=== PATIENT | male | born 1960 | race Caucasian/White ===

== ENCOUNTER → 2021-07-13 13:37 | Outpatient (CLI) | payer OTHER, SELFPAY ==
--- NOTE | 2021-07-13 | DI.CT.S_ITS ---
PROCEDURE: CT ABDOMEN PELVIS W CON INDICATIONS: Left lower quadrant abdominal swelling, mass TECHNIQUE: After the administration of oral and IV contrast, axial sections were acquired from the lung bases to the pubic symphysis. Coronal and sagittal reformats were performed. For radiation dose reduction, the following was used: automated exposure control, adjustment of mA and/or kV according to patient size. COMPARISON: None. FINDINGS: Image quality: Excellent. Lung bases: Unremarkable. A small hiatal hernia is incidentally noted. Heart: No significant findings. ABDOMEN: Liver: Unremarkable. Gallbladder: Dependent gallstones can be seen within the gallbladder. The gallbladder otherwise has an unremarkable CT appearance. Biliary ducts: Unremarkable. Pancreas: Unremarkable. Spleen: Unremarkable. Adrenal Glands: Unremarkable. Kidneys and Ureters: Along the posterior aspect of the left kidney, there is a water density nonenhancing cyst seen that measures 1.5 cm. The kidneys enhance symmetrically and demonstrate normal size. There is no hydronephrosis. Stomach and Bowel: Proximal gastric wall thickening can be seen. No small bowel wall thickening can be seen. No dilated loops of small bowel are seen. Distal colonic diverticulosis is seen, without diverticulitis. A mild amount of stool can be seen within the colon. No additional: Abnormality can be seen. A normal appendix is incidentally noted. Peritoneum: No abnormal intraperitoneal fluid. No free air. Ventral Wall: No hernia. Abdominal Nodes: No retroperitoneal or mesenteric adenopathy by size criteria. Vessels: Aorta and inferior vena cava are normal in size. PELVIS: Pelvic Organs: Unremarkable. Bladder: Unremarkable. Pelvic Nodes: No enlarged lymph nodes. Miscellaneous: Bilateral fat containing inguinal hernias are seen, left larger than right. Bones: Mild levoconvex scoliotic curvature is noted. Focal L5-S1 degenerative change is seen, with moderate disc space narrowing. Bilateral pars defects are seen. Grade 1 anterolisthesis is seen at this level. Milder degenerative changes are seen elsewhere. Chronic appearing thoracolumbar junction anterior wedge deformities are seen IMPRESSION: No left lower quadrant masses are seen. No inflammatory lesions are seen. Colonic diverticulosis is seen, without findings of active diverticulitis. Proximal gastric wall thickening can be seen. Differential diagnosis includes a true mass/infiltration versus incomplete distention. If clinically appropriate, please consider an upper endoscopy for further evaluation. Incidental note is made of: Small hiatal hernia Simple appearing left renal cyst Chronic appearing thoracolumbar junction anterior wedge deformities Normal appendix Grade 1 L5-S1 anterolisthesis, with associated degenerative change Bilateral L5 pars defects Fat containing bilateral inguinal hernias, left larger than right. Dictated by: Mateo Barker M.D. on 07/13/2021 at 15:53 Approved by: Mateo Barker M.D. on 07/13/2021 at 15:57
== END ==
PROVIDERS: Referring Provider Family Medicine; Visit Provider Family Medicine
DX: R19.04 Left lower quadrant abdominal swelling, mass and lump (principal); K44.9 Diaphragmatic hernia without obstruction or gangrene; K57.90 Diverticulosis of intestine, part unspecified, without perforation or abscess without bleeding; N28.1 Cyst of kidney, acquired; M43.17 Spondylolisthesis, lumbosacral region; M47.817 Spondylosis without myelopathy or radiculopathy, lumbosacral region; K40.20 Bilateral inguinal hernia, without obstruction or gangrene, not specified as recurrent
CPT/HCPCS: 74177

== ENCOUNTER → 2022-11-02 12:05 | Outpatient (CLI) | payer OTHER, SELFPAY ==
--- NOTE | 2022-11-02 | DI.MRI.S_ITS ---
PROCEDURE: MR LUMBAR SPINE WO CON INDICATIONS: Spinal stenosis, lumbar region TECHNIQUE: Noncontrast sagittal T1 spin echo and T2 fast echo, sagittal STIR, and T2 fast spin echo through the lumbar spine. In cases with scoliosis, additional coronal T2 fast spin echo may be performed. COMPARISON: None. FINDINGS: Image quality: Excellent. Alignment and Curvature: There is grade 1 L5 on S1 anterolisthesis. There is otherwise normal bony alignment. Bone Marrow: Marrow is of normal overall signal. No acute vertebral body compression fractures. Spinal Cord: Conus medullaris terminates at the L1 level. Visualized cord demonstrates normal signal and size. Paraspinous Soft Tissues: No paravertebral masses. T12-L1: Severe disc desiccation and height loss. No canal stenosis. No foraminal stenosis. L1-L2: Severe disc desiccation and height loss. No canal stenosis. Mild bilateral foraminal stenosis. L2-L3: Severe disc desiccation and height loss. No canal stenosis. Mild bilateral neural foraminal stenosis. L3-L4: Severe disc desiccation and height loss. Broad-based disc bulge. Mild facet and ligamentum flavum hypertrophy. No canal stenosis. L4-L5: Moderate disc desiccation and height loss. Mild facet ligamentum flavum hypertrophy. No canal stenosis. Moderate bilateral foraminal stenosis. L5-S1: Severe disc desiccation and height loss. Moderate facet ligamentum flavum hypertrophy. Mild canal stenosis. Severe bilateral neural foraminal stenosis with flattening of the bilateral exiting nerve roots. IMPRESSION: 1. Severe disc desiccation, height loss, and anterolisthesis at L5-S1 with resultant mild canal stenosis and bilateral severe foraminal stenosis with flattening of the exiting nerve roots. 2. Moderate to severe multilevel disc desiccation and height loss throughout the lumbar spine. 3. Moderate foraminal stenosis bilaterally at L4-5. Dictated by: Nancy Montiel M.D. on 11/02/2022 at 15:07 Approved by: Nancy Montiel M.D. on 11/02/2022 at 15:50
== END ==
PROVIDERS: PCP Nurse Practitioner Family; Referring Provider Orthopaedic Surgery Orthopaedic Surgery of the Spine; Visit Provider Orthopaedic Surgery Orthopaedic Surgery of the Spine
DX: M48.061 Spinal stenosis, lumbar region without neurogenic claudication (principal); M48.07 Spinal stenosis, lumbosacral region; M43.17 Spondylolisthesis, lumbosacral region
CPT/HCPCS: 72148